=== PATIENT | male | born 1985 | race Caucasian/White ===

== ENCOUNTER 2019-06-05 01:14 | Emergency (ER) | payer SELFPAY ==
[~2019-06-05] VITALS: Ht 167.6 cm; Wt 65.8 kg
[2019-06-05 01:25] VITALS: BP 135/84
--- NOTE | 2019-06-05 01:25 | NUR ---
ROLANDO LANGE FROM FRIEND'S HOUSE WITH AT BEDSIDE. AAOX4. NO RESP DISTRESS NOTED. COOPERATIVE AND COMPLIANT. BROUGHT IN FOR ALCOHOL INTOXICATION AFTER REPOTEDLY CONSUMING 2 BOTTLES OF WINE IN A 24HRS PERIOD. NO NOTED INJURY. TO ER BED 9. MD AT BEDSIDE FOR EVAL. ORDERS RECEIVED AND NTED
--- NOTE | 2019-06-05 01:30 | NUR ---
PT WAS GIVEN A PITCHER OF WATER THAT PT CONSUMMED, TOLERATED WELL. AMBULATED TO BATHROOM ON HIS OWN WITH STEADY GAIT. BS @ 92, AWARE
== END 2019-06-05 02:15 | disposition home or self-care (01) ==
LOC: ER 01:14
DX: T51.91XA Toxic effect of unspecified alcohol, accidental (unintentional), initial encounter (principal); Y92.89 Other specified places as the place of occurrence of the external cause
CPT/HCPCS: 82962-TC